=== PATIENT | female | born 1975 | race Caucasian/White ===

== ENCOUNTER 2021-11-09 14:12 | Emergency (ER) | payer OTHER ==
[~2021-11-09] VITALS: Ht 154.9 cm; Wt 117.9 kg
[~2021-11-09 14:12] MED LIST: COMBIVENT; HYDROCODON-ACE1 EAC7 PO; HYDROCODONE-AP1 EAC6 PO; OMEPRAZOLE40 MG PO; PROTONIX40 M1; SYMBICORT160 MCG/4.; VESICARE10 M1; ZOFRAN ODT4 MG PO
[2021-11-09] MEDS ORDERED: ALBUTEROL2.5 MG/0.1 INH (14:36)
[2021-11-09] MEDS ORDERED: REMERON45 M1 PO (14:37)
[2021-11-09] MEDS ORDERED: LAMICTAL ODT100 MG PO (14:37)
[2021-11-09] MEDS ORDERED: CYMBALTA60 MG PO (14:37)
[2021-11-09] MEDS ORDERED: XANAX1 MG PO (14:37)
[2021-11-09] MEDS ORDERED: LISINOPRIL10 MG PO (14:37)
[2021-11-09 17:33] LABS: ABSOLUTE BASOPHILS 0.1 thou/uL (0.0-0.2); ABSOLUTE EOSINOPHILS 0.1 thou/uL (0.0-0.7); ABSOLUTE LYMPHOCYTES 2.6 thou/uL (0.8-5.3); ABSOLUTE MONOCYTES 0.8 thou/uL (0.0-1.2); ABSOLUTE NEUTROPHILS 5.5 thou/uL (1.6-8.1); BASOPHILS 1.5 %; EOSINOPHILS 1.5 %; HEMATOCRIT 36.2 % (37.0-47.0); HEMOGLOBIN 11.9 gm/dL (12.0-15.0); LYMPHOCYTES 28.7 %; MCH 28.5 pg (26.0-34.0); MCHC 32.9 g/dL (28.0-37.0); MCV 86.7 fL (80.0-100.0); MONOCYTES 8.6 %; MPV 8.2 fl. (7.2-11.1); NUCLEATED RBCS 0 /100WBC; PLATELET COUNT* 536 thou/uL (150-400); POLYS 59.7 %; RBC 4.17 mil/uL (4.20-5.00); RDW-CV 17.9 % (10.5-14.5); WBC 9.2 thou/uL (4.0-11.0)
[2021-11-09] MEDS ORDERED: PROAIR HFA8.5 GM INH (19:45)
[2021-11-09] MEDS ORDERED: PREDNISONE 10 M10 MG PO (19:45)
[2021-11-09] MEDS ORDERED: TESSALON PERLE100 MG PO (19:45)
[2021-11-09 19:58] VITALS: BP 160/65
[2021-11-09 20:12] LABS: ALBUMIN 3.6 g/dL (3.4-5.0); CALCIUM 8.5 mg/dL (8.5-10.1); CREATININE 0.8 mg/dL (0.6-1.3); POTASSIUM 4.4 mmol/L (3.5-5.1); TOTAL BILIRUBIN 0.2 mg/dL (<0.1-1.0); TOTAL PROTEIN 8.2 g/dL (6.4-8.2)
[2021-11-10] MEDS ORDERED: FLOMAX0.4 MG PO ×2 (16:35→17:32)
[2021-11-10] MEDS ORDERED: NORCO5 PO ×2 (16:35→17:32)
== END 2021-11-09 19:58 | disposition home or self-care (01) ==
LOC: M.ERS 14:12
PROVIDERS: Physician Assistant
DX: J44.9 Chronic obstructive pulmonary disease, unspecified (principal); Z20.822 Contact with and (suspected) exposure to COVID-19; D64.9 Anemia, unspecified; Z86.14 Personal history of Methicillin resistant Staphylococcus aureus infection; Z90.710 Acquired absence of both cervix and uterus; Z90.49 Acquired absence of other specified parts of digestive tract; Z98.84 Bariatric surgery status; Z98.890 Other specified postprocedural states; Z79.899 Other long term (current) drug therapy; Z88.8 Allergy status to other drugs, medicaments and biological substances; Z88.5 Allergy status to narcotic agent

== ENCOUNTER 2021-11-10 12:43 | Emergency (ER) | payer OTHER, MEDICAID ==
[~2021-11-10] VITALS: Ht 154.9 cm; Wt 117.9 kg
[~2021-11-10 12:43] MED LIST changes: +ALBUTEROL2.5 MG/0.1 INH; +CYMBALTA60 MG PO; +LAMICTAL ODT100 MG PO; +LISINOPRIL10 MG PO; +PREDNISONE 10 M10 MG PO; +PROAIR HFA8.5 GM INH; +REMERON45 M1 PO; +TESSALON PERLE100 MG PO; +XANAX1 MG PO
[2021-11-10 15:14] LABS: URINE BILIRUBIN NEGATIVE (Negative); URINE BLOOD NEGATIVE (Negative); URINE CLARITY CLEAR; URINE COLOR YELLOW; URINE GLUCOSE-RANDOM NEGATIVE (Negative); URINE KETONES NEGATIVE (Negative); URINE LEUKOCYTES-REFLEX NEGATIVE (Negative); URINE NITRITE-REFLEX NEGATIVE (Negative); URINE PROTEIN NEGATIVE (Negative); URINE SPECIFIC GRAVITY >= 1.030 (1.005-1.030); URINE UROBILINOGEN 0.2 E.U./dl (0.2-1.0)
[2021-11-10 15:18] LABS: ABSOLUTE BASOPHILS 0.1 thou/uL (0.0-0.2); ABSOLUTE LYMPHOCYTES 2.5 thou/uL (0.8-5.3); ABSOLUTE MONOCYTES 1.4 thou/uL (0.0-1.2); ABSOLUTE NEUTROPHILS 10.2 thou/uL (1.6-8.1); BASOPHILS 0.9 %; EOSINOPHILS 0.3 %; HEMATOCRIT 35.7 % (37.0-47.0); HEMOGLOBIN 11.5 gm/dL (12.0-15.0); LYMPHOCYTES 17.6 %; MCH 27.6 pg (26.0-34.0); MCHC 32.2 g/dL (28.0-37.0); MCV 85.6 fL (80.0-100.0); MONOCYTES 9.6 %; NUCLEATED RBCS 0 /100WBC; PLATELET COUNT* 516 thou/uL (150-400); POLYS 71.6 %; RBC 4.17 mil/uL (4.20-5.00); RDW-CV 17.4 % (10.5-14.5); WBC 14.3 thou/uL (4.0-11.0)
[2021-11-10 15:24] LABS: CALCIUM 8.4 mg/dL (8.5-10.1); CREATININE 0.8 mg/dL (0.6-1.3)
[2021-11-10 15:28] LABS: ALBUMIN 3.3 g/dL (3.4-5.0); TOTAL BILIRUBIN 0.3 mg/dL (<0.1-1.0)
[2021-11-10 15:33] LABS: POTASSIUM 4.8 mmol/L (3.5-5.1)
[2021-11-10] MEDS ORDERED: NORCO5 PO ×2 (16:35→17:32)
[2021-11-10] MEDS ORDERED: FLOMAX0.4 MG PO ×2 (16:35→17:32)
[2021-11-10 17:08] VITALS: BP 167/108
== END 2021-11-10 17:09 | disposition home or self-care (01) ==
LOC: M.ERS 12:43
PROVIDERS: Emergency Medicine
DX: N20.1 Calculus of ureter (principal); J44.9 Chronic obstructive pulmonary disease, unspecified; R11.2 Nausea with vomiting, unspecified; Z87.442 Personal history of urinary calculi; Z86.14 Personal history of Methicillin resistant Staphylococcus aureus infection; Z90.710 Acquired absence of both cervix and uterus; Z90.49 Acquired absence of other specified parts of digestive tract; Z90.89 Acquired absence of other organs; Z98.84 Bariatric surgery status; Z98.890 Other specified postprocedural states; Z79.899 Other long term (current) drug therapy; Z88.8 Allergy status to other drugs, medicaments and biological substances; Z88.5 Allergy status to narcotic agent

== ENCOUNTER 2021-11-29 13:04 | Emergency (ER) | payer OTHER, MEDICAID ==
[~2021-11-29] VITALS: Ht 154.9 cm; Wt 117.9 kg
[~2021-11-29 13:04] MED LIST changes: +FLOMAX0.4 MG PO; +NORCO5 PO
[2021-11-29 14:05] LABS: URINE BILIRUBIN NEGATIVE (Negative); URINE BLOOD NEGATIVE (Negative); URINE CLARITY CLEAR; URINE COLOR YELLOW; URINE GLUCOSE-RANDOM NEGATIVE (Negative); URINE KETONES NEGATIVE (Negative); URINE LEUKOCYTES-REFLEX NEGATIVE (Negative); URINE NITRITE-REFLEX NEGATIVE (Negative); URINE PROTEIN NEGATIVE (Negative); URINE SPECIFIC GRAVITY >= 1.030 (1.005-1.030); URINE UROBILINOGEN 0.2 E.U./dl (0.2-1.0)
[2021-11-29 14:08] LABS: ABSOLUTE EOSINOPHILS 0.3 thou/uL (0.0-0.7); ABSOLUTE LYMPHOCYTES 1.7 thou/uL (0.8-5.3); ABSOLUTE MONOCYTES 0.7 thou/uL (0.0-1.2); ABSOLUTE NEUTROPHILS 6.4 thou/uL (1.6-8.1); BASOPHILS 0.4 %; EOSINOPHILS 3.7 %; HEMOGLOBIN 11.5 gm/dL (12.0-15.0); LYMPHOCYTES 18.5 %; MCV 87.4 fL (80.0-100.0); MONOCYTES 7.9 %; MPV 7.8 fl. (7.2-11.1); NUCLEATED RBCS 0 /100WBC; PLATELET COUNT* 494 thou/uL (150-400); POLYS 69.5 %; RBC 4.12 mil/uL (4.20-5.00); RDW-CV 18.1 % (10.5-14.5); WBC 9.1 thou/uL (4.0-11.0)
[2021-11-29 14:15] LABS: CALCIUM 8.8 mg/dL (8.5-10.1); CREATININE 0.8 mg/dL (0.6-1.3); POTASSIUM 4.3 mmol/L (3.5-5.1)
[2021-11-29 14:19] LABS: ALBUMIN 3.7 g/dL (3.4-5.0); TOTAL BILIRUBIN 0.3 mg/dL (<0.1-1.0); TOTAL PROTEIN 8.1 g/dL (6.4-8.2)
--- NOTE | 2021-11-29 14:36 | EKG ---
[place] [address] ELECTROCARDIOGRAM REPORT Name: TD DC Room: [facility]#: [id number] Admission: 11/29/21 Attend Phys: Discharge: Date of : 73 Date of Service: 11/29/21 1411 Report #: [id number] THIS REPORT FOR: //name// [facility] ED Test Date: 2021-11-29 Test Time: 14:11:00 Pat Name: TD DC Department: Room: Gender: Compliance Assistant: : 1975 Requested By: Jamar White Order Number: [id number] MD: Harinder Brady Measurements Intervals [place] Rate: 78 P: 32 OK: 153 QRS: 24 QRSD: 93 T: 50 QT: 383 QTc: 437 Interpretive Statements Sinus rhythm Baseline wander in lead(s) V5 Compared to ECG 12/14/2015 19:19:05 No significant changes Electronically Signed On 11-29-2021 14:36:15 [employer] by Harinder Brady [email or web address] <ELECTRONICALLY SIGNED> By: Harinder Brady MD, [facility] 11/29/21 1436 1411 1411 Harinder Brady MD, FAC /EPI
[2021-11-29] MEDS ORDERED: ZOFRAN ODT4 MG DISSOLVE (15:25)
[2021-11-29] MEDS ORDERED: HYDROCODON-ACE1 EAC7 PO (15:25)
[2021-11-29 15:35] VITALS: BP 125/86
== END 2021-11-29 15:36 | disposition home or self-care (01) ==
LOC: M.ERS 13:04
PROVIDERS: Emergency Medicine Emergency Medical Services
DX: R10.13 Epigastric pain (principal); R10.11 Right upper quadrant pain; I10 Essential (primary) hypertension; J44.9 Chronic obstructive pulmonary disease, unspecified; E78.00 Pure hypercholesterolemia, unspecified; Z90.49 Acquired absence of other specified parts of digestive tract; Z90.710 Acquired absence of both cervix and uterus; Z79.899 Other long term (current) drug therapy; Z88.5 Allergy status to narcotic agent; Z88.8 Allergy status to other drugs, medicaments and biological substances

== ENCOUNTER 2021-12-15 15:56 | Emergency (ER) | payer OTHER, MEDICAID ==
[~2021-12-15] VITALS: Ht 154.9 cm; Wt 108.9 kg
[~2021-12-15 15:56] MED LIST changes: +ZOFRAN ODT4 MG DISSOLVE
[2021-12-15 18:55] LABS: URINE BILIRUBIN NEGATIVE (Negative); URINE BLOOD 3+ (Negative); URINE CLARITY CLEAR; URINE COLOR YELLOW; URINE GLUCOSE-RANDOM NEGATIVE (Negative); URINE KETONES NEGATIVE (Negative); URINE PROTEIN 1+ (Negative); URINE SPECIFIC GRAVITY >= 1.030 (1.005-1.030); URINE UROBILINOGEN 0.2 E.U./dl (0.2-1.0)
[2021-12-15 18:57] LABS: SQUAMOUS 4-10 Moderate /LPF (0-3); URINE LEUKOCYTES-REFLEX 2+ (Negative); URINE NITRITE-REFLEX POSITIVE (Negative)
[2021-12-15 18:58] LABS: CASTS None Seen /LPF (None Seen); CRYSTALS None Seen /LPF (None Seen); URINE WBC-REFLEX 6-15 Few /HPF (0-5)
[2021-12-15 19:56] LABS: ABSOLUTE BASOPHILS 0.1 thou/uL (0.0-0.2); ABSOLUTE EOSINOPHILS 0.4 thou/uL (0.0-0.7); ABSOLUTE LYMPHOCYTES 2.3 thou/uL (0.8-5.3); ABSOLUTE MONOCYTES 0.8 thou/uL (0.0-1.2); ABSOLUTE NEUTROPHILS 6.7 thou/uL (1.6-8.1); BASOPHILS 0.6 %; EOSINOPHILS 3.7 %; HEMATOCRIT 33.3 % (37.0-47.0); HEMOGLOBIN 10.6 gm/dL (12.0-15.0); LYMPHOCYTES 22.5 %; MCH 28.1 pg (26.0-34.0); MCHC 31.9 g/dL (28.0-37.0); MCV 88.1 fL (80.0-100.0); MONOCYTES 7.4 %; MPV 6.6 fl. (7.2-11.1); NUCLEATED RBCS 0 /100WBC; PLATELET COUNT* 658 thou/uL (150-400); POLYS 65.8 %; RBC 3.78 mil/uL (4.20-5.00); RDW-CV 17.4 % (10.5-14.5); WBC 10.2 thou/uL (4.0-11.0)
[2021-12-15 20:12] LABS: CALCIUM 8.4 mg/dL (8.5-10.1); CREATININE 0.8 mg/dL (0.6-1.3); POTASSIUM 4.1 mmol/L (3.5-5.1)
[2021-12-15 20:17] LABS: ALBUMIN 3.3 g/dL (3.4-5.0); TOTAL BILIRUBIN 0.1 mg/dL (<0.1-1.0); TOTAL PROTEIN 7.8 g/dL (6.4-8.2)
[2021-12-15] MEDS ORDERED: MACROBID 100 M100 M1 PO (21:15)
[2021-12-15] MEDS ORDERED: ZOFRAN ODT4 MG PO (21:15)
[2021-12-15] MEDS ORDERED: PYRIDIUM200 MG PO (21:15)
[2021-12-15 21:25] VITALS: BP 139/92
== END 2021-12-15 21:25 | disposition home or self-care (01) ==
LOC: M.ERS 15:56
PROVIDERS: Student in an Organized Health Care Education/Training Program
DX: N30.90 Cystitis, unspecified without hematuria (principal); I10 Essential (primary) hypertension; F31.9 Bipolar disorder, unspecified; E78.00 Pure hypercholesterolemia, unspecified; J44.9 Chronic obstructive pulmonary disease, unspecified; Z86.14 Personal history of Methicillin resistant Staphylococcus aureus infection; Z90.89 Acquired absence of other organs; Z98.84 Bariatric surgery status; Z90.710 Acquired absence of both cervix and uterus; Z98.890 Other specified postprocedural states; Z79.899 Other long term (current) drug therapy; Z88.8 Allergy status to other drugs, medicaments and biological substances; Z88.5 Allergy status to narcotic agent